=== PATIENT | male | born 1985 | race Caucasian/White ===

== ENCOUNTER 2021-05-15 05:16 | Inpatient (IN) ==
[2021-05-15] MEDS ORDERED: GLYCOPYRROLATE 0.2 MG/ML VIAL ONE (06:52)
[2021-05-15] MEDS ORDERED: LIDOCAINE 2% 2 ML VIAL/AMP(20MG/ML) INFIL ONE (06:52)
[2021-05-15] MEDS ORDERED: DEXAMETHASONE SOD INJ 4 MG/ML VIAL ONE (06:52)
[2021-05-15] MEDS ORDERED: NEOSTIGMINE METHYLSULFATE 1 MG/ML 10ML VIAL ONE (06:52)
[2021-05-15] MEDS ORDERED: PROPOFOL IV EMULSION 10 MG/ML 20 ML VIAL IV ONE ×3 (06:52→09:16)
[2021-05-15] MEDS ORDERED: ONDANSETRON INJ 2 MG/ML 2 ML VIAL ONE (06:52)
[2021-05-15] MEDS ORDERED: fentaNYL citrate 100 MCG/2 ML VIAL ONE (06:53)
[2021-05-15] MEDS ORDERED: MIDAZOLAM HCL 1 MG/ML 2ML VIAL ONE ×2 (06:53→07:24)
--- NOTE | 2021-05-15 07:14 | History & Physical Report ---
Date of Service May 15, 2021 Assessment & Plan (1) Displaced spiral fracture of shaft of fibula: We discussed treatment options with the patient including casting and nonoperative versus operative management. He is elected proceed with operative management. We can taken the operating to an IM nail of his left tibia. There is cement this procedure explained the patient include but not limited to DVT PE infection neurological injury vascular bleeding palm pain limb range of motion stiffness compartment syndrome need for further surgery in future symptomatic hardware extractor. Patient understands and desires to proceed. Informed consent was obtained.We will plan on DVT prophylaxis including thigh teds SCDs and aspirin. History of Present Illness Chief Complaint: . Left leg injury Primary Care Provider: NO PCP . Patient is a 35-year-old fairly active and healthy gentleman sustained a left Leg injury on Sunday evening. He was in the area locally tenting from some type of canoe [place] when he tripped over stump and injured his left leg. Acute onset of pain.He is brought to emergency room where x-rays revealed a moderately displaced midshaft tibia fracture. He was splinted. He now presents for surgical management. Allergies Allergy/AdvReac Type Severity Reaction Status Date / Time No Known Allergies Allergy Unverified 05/13/21 23:49 Home Medications Medication Instructions Recorded Confirmed Type ondansetron 4 mg disintegrating 4 mg PO Q6H PRN #12 tab 05/14/21 Rx tablet oxycodone 5 mg tablet 5 - 10 mg PO Q6H #15 tab 05/14/21 Rx Past Med/Surg History Medical History No chronic diseases present Surgical History No significant past surgical history Social History Smoking Status: Current every day smoker Feels Safe at Home: Yes Review of Systems All systems reviewed & are unremarkable except as noted in HPI & below. Physical Exam .Physical examination reveals a healthy pleasant middle-aged male. Looks to be in excellent health. HEENT exam is benign. Neck supple no lymphadenopathy lungs clear auscultation. Heart has a regular rate and rhythm. Abdomen soft nontender nondistended for extremity numbness grossly neuro vas intact up as follows. Examination of the left leg reveals a long-leg splint to be in place. The leg is fairly well aligned. There are some moderate swelling. Skins intact to the best my ability to tell we did not take down the dressing. He can dorsiflex and plantarflex his toes appropriately. There is no pain with active or passive motion. Brisk refill. Results & Data Results & Data Laboratory Results . Diagnostic Findings Radiographs reveal a short oblique midshaft tibia fracture with some crack propagation distally which is minimally displaced .He also has a proximal fibula fracture PG Care Time/CCT Total # of Minutes Spent Total Time Spent with Patient: Total time spent is greater than 50% in coordination of care (as documented) at patient's floor/unit and/or counseling patient: Coding Level of Care Code 38206 Initial Inpt Care Lvl 3 Diagnoses Displaced spiral fracture of shaft of fibula S82.442A Encounter type: initial encounter Fracture type: closed Laterality: left (1) Displaced spiral fracture of shaft of fibula Encounter type: initial encounter Fracture type: closed Laterality: left Qualified Code(s): S82.442A - Displaced spiral fracture of shaft of left fibula, initial encounter for closed fracture
[2021-05-15] MEDS ORDERED: BUPIVACAINE 0.5 % 5 MG/1 ML PF 10ML VIAL ONE (07:23)
[2021-05-15] MEDS ORDERED: ceFAZolin 2,000 MG/15 ML IV PUSH IV ONE (07:26)
[2021-05-15] MEDS ORDERED: ONDANSETRON INJ 2 MG/ML 2 ML VIAL IV PRN ×2 (07:39→11:31)
[2021-05-15] MEDS ORDERED: fentaNYL citrate 100 MCG/2 ML VIAL IV PRN (07:39)
[2021-05-15] MEDS ORDERED: ePHEDrine sulfate 50 MG/ML AMP IV PRN (07:39)
[2021-05-15] MEDS ORDERED: ATROPINE SULFATE 0.1 MG/ML 10ML SYR IV PRN (07:39)
[2021-05-15] MEDS ORDERED: EPINEPHrine INJ 1 MG/ML AMP ONE (07:43)
[2021-05-15] MEDS ORDERED: BUPIVACAINE 0.5 % 5 MG/1 ML MPF 30ML VIAL ONE (07:43)
[2021-05-15] MEDS ORDERED: KETOROLAC 30 MG/ML VIAL ONE (09:58)
--- NOTE | 2021-05-15 10:11 | Operative Report ---
PG Post Operative Report Pre & Post Diagnosis Operation Date: 05/15/21 07:30 Pre-Op Diagnosis: Left displaced tibia and fibula fracture Post-Op Diagnosis: Left displaced tibia and fibula fracture I identified the patient and participated in the time-out.: Yes Procedure Operation Date: 05/15/21 07:30 Actual Procedures p Intramedullary Nail Tibia(Left) - Owen Santamaria MD Surgeon Owen Santamaria MD Data Operations Leader Israel Jarrett PA-C Estimated Blood Loss 100 Findings Consistent with Post-Op Diagnosis Fluids 1400 cc Specimens None Anesthesia Type Spinal MAC Complications none Disposition Accompanied Patient To Recovery: No Indications Patient is a 35-year-old healthy gentleman who sustained an injury to his leg just 2 days ago. He was out camping and tripped over a stump and fell and injured his left leg. He was consuming some alcohol at the time. He was brought to emergency room x-rays revealed a mildly displaced tib-fib fracture. We discussed treatment options including casting and nonoperative management and operative treatment. He was quite uncomfortable and elected proceed with surgical management to stabilize the fracture and mobilize him. Description of Procedure Operative implants consist of: 1. Synthes 11 mm x 405 mm titanium tibial nail. 2. 10 mm endcap. 3. 5.0 interlocking screws x4. The patient was taken the operating, identified, placed on the operating table supine position protectors were properly padded. IV antibiotics tried by anesthesia team. A spinal anesthetic had been implemented in the holding area. A left thigh turn was then placed. The left lower extremity splint was then removed. I then shaved the local areas around the incision site. We then scrubbed the leg with Hibiclens and then prepped the leg with ChloraPrep and draped in usual sterile fashion. A longitudinal incision was made over the anterior aspect of the knee just medial to the patella tendon extending from the mid inferior aspect of the patella to just medial to the tibial tubercle. Sharp dissection was got through subcutaneous tissue down to the extensor mechanism. A medial parapatellar tendon incision was made. I then did resect some of the fat pad. A guidewire was then placed at the anterior and superior apex of the tibial crest and in line with the IM canal both the AP and lateral planes. This verified fluoroscopically and then be advanced down the canal. I then used a large reamer to open up the proximal canal. This guidewire was then removed and a ball-tipped guidewire was placed. We had to adjust the ball-tipped guidewire and then some in order to get across the fracture site. We did place this down the canal and after several manipulations were able to pass it across the f racture site. We measured for nail length and a 405 mm nail was selected. I then overreamed the guidewire. We did place a reduction clamp distally as the fracture extended distally and I placed a reduction clamp before reaming. This was made through some stab incisions. I then reamed up to a 12 and half millimeter reamer where we first started getting significant cortical contact. An 11 mm by forearm 5 mm nail was selected. Was placed over the guidewire and tapped into position. The proximal aiming arm was attached. Through stab incisions the proximal interlocking screws were placed. The operating device was then removed and a 10 mm end cap was placed. Attention drawn toward distal fixation. Using the perfect makah technique stab incisions were made and 2 distal interlocking screws were placed in the standard fashion. Some final x-rays were obtained. Attention drawn toward closing. All wounds were irrigated scopes also pulsatile lavage solution. I did inject locally with 30 cc of half percent Marcaine with epinephrine. The parapatellar incision was closed with #1 Vicryl suture in a [id number] fashion. Subcutaneous tissues of all wounds were then closed with 2-0 Dexon suture in a buried interrupted fashion skin was closed with 3-0 nylon suture in simple fashion. Leg was then cleaned and dried a sterile dressing was Xeroform, 4 x 4's, sterile cast padding, a posterior and stirrup splint which was well-padded and an Howie bandage were applied. The patient then transferred to the recovery room in stable condition. Patient tolerated the procedure well and there were no complications. Israel Jarrett, my physician editorial assistant, was present for the entire procedure. His assistance was required for proper patient positioning, prepping and draping, surgical exposure, retraction, performing the technical details the operation, reduction of the fracture, placement of the hardware, closure of the wound, and placement of the sterile bandage and splint. I attest to the content of the Intraoperative Record and any orders documented therein. Any exceptions are noted below.
--- NOTE | 2021-05-15 10:21 | Fluoroscopy Report ---
FL tibia/fibula LT 2V CLINICAL HISTORY: LEFT TIBIAL NAILING TECHNIQUE: 6 views were obtained with the C-arm in the OR with the above procedure. Total fluoroscopy time was 82.7 seconds. Total skin dose was 4.6 mGy. Comparison: Comparison is made to tibia fibula radiographs 05/13/2021 FINDINGS/IMPRESSION: Intraoperative images were obtained of left tibial nailing. Please correlate with intraoperative fluoroscopy and operative report. ACT 112: Negative or not required by law. Electronically signed by: Isra Cardona M.D. 05/15/2021 10:19 AM
--- NOTE | 2021-05-15 10:41 | Anesthesiology Progress Note ---
Date of Service May 15, 2021 Anesthesia Post Procedure Vital Signs Vital Signs: Temp Pulse Pulse Pulse Resp BP BP 05/15/21 10:35 90 14 125/74 05/15/21 10:25 98.2 F 75 18 122/75 05/15/21 10:15 90 20 113/88 05/15/21 10:05 98.1 F 92 H 17 114/75 05/15/21 07:11 85 18 122/66 05/15/21 06:44 85 18 122/66 05/15/21 05:20 98.1 F 74 20 114/77 Pulse Ox 05/15/21 10:35 94 05/15/21 10:25 93 05/15/21 10:15 96 05/15/21 10:05 96 05/15/21 07:11 96 05/15/21 06:44 96 05/15/21 05:20 92 Transfer of Care Handoff Completed per policy Notes Mental Status: alert / awake / arousable and participated in evaluation Patient Amnestic to Procedure: Yes Nausea / Vomiting: adequately controlled Pain: adequately controlled Airway Patency, RR, SpO2: stable & adequate BP & HR: stable & adequate Hydration State: stable & adequate Neuraxial Anesthesia: was administered and sensory block is resolving Anesthetic Complications: no major complications apparent and Pt Satisfied with anesthetic care
[2021-05-15] MEDS ORDERED: bisacodyL 10 MG SUPP PR PRN (11:31)
[2021-05-15] MEDS ORDERED: diphenhydrAMINE Capsule 25 MG CAP PO PRN (11:31)
[2021-05-15] MEDS ORDERED: TAMSULOSIN HCL 0.4 MG CAP PO PRN (11:31)
[2021-05-15] MEDS ORDERED: HYDROmorphone INJ 0.5 MG/0.5 ML SYR IV PRN (11:31)
[2021-05-15] MEDS ORDERED: NALOXONE HCL 0.4 MG/1 ML VIAL/CARP IV PRN (11:31)
[2021-05-15] MEDS ORDERED: METOCLOPRAMIDE HCL INJ 5 MG/ML 2 ML VIAL IV PRN (11:31)
[2021-05-15] MEDS ORDERED: MAGNESIUM HYDROXIDE SUSP 30 ML UDC PO PRN (11:31)
[2021-05-15] MEDS ORDERED: ALUMINUM/MAGNESIUM SUSP 30 ML UDC PO PRN (11:31)
[2021-05-15] MEDS ORDERED: oxyCODONE HCL IR 5 MG TAB (IMMEDIATE RELEASE) PO PRN (11:31)
[2021-05-15] MEDS: SODIUM CHLORIDE 0.9% 1000ML 1,000 ML IV SCH ×2 (12:57→17:26)
[2021-05-15] MEDS: KETOROLAC 30 MG/ML VIAL IV SCH ×3 (13:01→23:40)
[2021-05-15] MEDS: ACETAMINOPHEN 500 MG TAB PO SCH ×2 (13:05→21:06)
[2021-05-15] MEDS: ASCORBIC ACID 500 MG TAB PO SCH (16:44)
[2021-05-15] MEDS: ceFAZolin 2000MG 2,000 MG/15 ML SYR IV SCH ×2 (16:44→23:41)
[2021-05-15] MEDS ORDERED: SENNA 8.6 MG TAB PO SCH (21:00)
[2021-05-15] MEDS: DOCUSATE SODIUM 100 MG CAP PO SCH (21:05)
[2021-05-15] MEDS: ASPIRIN 81 MG ECTAB PO SCH (21:06)
[2021-05-16] MEDS: ACETAMINOPHEN 500 MG TAB PO SCH (05:30)
[2021-05-16] MEDS: KETOROLAC 30 MG/ML VIAL IV SCH (05:31)
[2021-05-16] MEDS: ASPIRIN 81 MG ECTAB PO SCH (08:06)
[2021-05-16] MEDS: ASCORBIC ACID 500 MG TAB PO SCH (08:06)
[2021-05-16] MEDS: DOCUSATE SODIUM 100 MG CAP PO SCH (08:07)
[2021-05-16] MEDS ORDERED: MULTIVITAMIN TAB PO SCH (09:00)
[2021-05-16] MEDS ORDERED: NICOTINE 14 MG/24 HR PATCH TD SCH (09:00)
--- NOTE | 2021-05-16 11:48 | Progress Notes ---
DATE OF SERVICE: 05/16/2021. SUBJECTIVE: A 35-year-old gentleman postoperative day 1 from IM nailing of a left tib-fib fracture. He is doing quite well. Denies any real significant pain this morning. No chest pain or shortness of breath. Not feeling dizzy or lightheaded. OBJECTIVE: VITAL SIGNS: Temperature 36.5. Vital signs are stable. GENERAL: Shows a pleasant middle-aged male. He is sitting up in bed, looks entirely comfortable. LUNGS: Clear to auscultation. HEART: Regular rate and rhythm. ABDOMEN: Soft, nontender, nondistended. EXTREMITIES: Grossly neurovascularly intact except as follows. Examination of the left leg reveals the dressing and splint to be in place. His leg is well aligned. He can do a straight leg raise. He can dorsiflex and plantarflex his toes without any significant pain. He has got brisk refill. Sensory exam is intact to light touch. ASSESSMENT: A 35-year-old gentleman, postoperative day 1 from IM nailing of left tib-fib fracture. Orthopedically, he is doing well. Pain is controlled. He is neurologically intact. PLAN: 1. DVT prophylaxis includes thigh-high TEDs, SCDs, and aspirin twice a day. 2. PT/OT. He is nonweightbearing on left leg for the next 2 weeks. 3. Pain control, doing well with current pain regimen. 4. Smoking history. We encouraged him to stop smoking as it can affect healing and risk of infection . 5. Disposition: He is going to be discharged to home after therapy this morning. Job ID: [id number]
--- NOTE | 2021-05-20 19:53 | Discharge Summary ---
Date of Service May 20, 2021 Discharge Data Procedures Performed Operation Date: 05/15/21 07:30 Actual Procedures p Intramedullary Nail Tibia(Left) - Owen Santamaria MD Hospital Course (1) Fracture of tibia and fibula, shaft: Raymond is a 35 year old patient admitted on 05/15/21 and underwent IM nailing of the left tib/fib fracture. He tolerated the procedure well and there were no complications. Transferred to the PACU post op and later to the orthopedic floor for further care. He was given ancef for antibiotic prophylaxis. He was also given REBEL stockings, SCDs, and aspirin for DVT prophylaxis. Hemoglobin, hematocrit, and vital signs were monitored during his hospital stay and remained stable. Did not require any blood transfusions. There were no complications during his hospital stay. By post op day #1 the patient was tolerating a regular diet, pain was reasonably controlled with oral pain medicine, and he was participating in physical therapy. On post op day #1 the patient was discharged home. He was given printed discharge instructions including prescriptions for extra strength tylenol, aspirin, zofran, and oxycodone. Non weight bearing on the left leg. Follow up approximately 2 weeks post op or sooner if there are problems or concerns. Coding Level of Care Code None Diagnoses Fracture of tibia and fibula, shaft S82.209A; S82.409A
== END 2021-05-16 10:35 | disposition home or self-care (01) | DRG 494 ==
LOC: ED 05:16 → OR 07:14 → 3E 07:14